=== PATIENT | female | born 1950 | race Caucasian/White ===

== ENCOUNTER 2016-05-15 17:14 | Emergency (ER) | payer OTHER, MEDICARE ==
[2016-05-15 19:43] LABS: BASOPHIL 0.4 % (0-2); EOSINOPHIL 2.5 % (0-7); HCT 36.7 % (37.0-47.0); HGB 12.2 g/dl (12.5-16.0); LYMPHOCYTE 26.5 % (15-48); MCH 30.6 pg (25.0-31.0); MCHC 33.2 g/dL (32.0-36.0); MPV 8.7 fL (6.0-9.5); NEUTROPHIL 61.6 % (41-80); PLT 421 K/uL (150-400); RBC 3.99 M/uL (4.20-5.40); RDW 14.1 % (11.5-14.0); WBC 7.3 K/uL (4.0-10.5)
[2016-05-15 19:57] LABS: CREATININE 1.4 mg/dL (0.5-1.0); POTASSIUM 3.7 mmol/L (3.5-5.1)
== END 2016-05-15 20:45 | disposition home or self-care (01) ==
LOC: FER 17:14
PROVIDERS: Nurse Practitioner Family
DX: I95.9 Hypotension, unspecified (principal); M54.2 Cervicalgia; M79.604 Pain in right leg; Z88.5 Allergy status to narcotic agent
CPT/HCPCS: 36415; 80048; 85025; 85379; 93005

== ENCOUNTER 2021-01-12 07:42 | Emergency (ER) | payer OTHER, MEDICARE ==
[~2021-01-12 07:42] MED LIST: ATARAX25 MG PO; CARTIA XT240 MG PO; CELEXA20 MG PO; CENTRUM COMPLE1 EACH PO; ELAVIL50 MG PO; PREVACID30 M1 PO; TOPROL XL 25MG25 MG PO; WARFARIN SODIU2.5 MG PO; WARFARIN SODIUM5 MG PO; WELLBUTRIN XL150 MG PO; ZOLPIDEM TART12.5 MG PO
[2021-01-12] MEDS ORDERED: NORCO 5-325 TA1 EACH PO (10:26)
== END 2021-01-12 11:17 | disposition home or self-care (01) ==
LOC: FER 07:42
DX: S52.572A Other intraarticular fracture of lower end of left radius, initial encounter for closed fracture (principal); Z88.5 Allergy status to narcotic agent; Z91.048 Other nonmedicinal substance allergy status; W19.XXXA Unspecified fall, initial encounter; Y92.009 Unspecified place in unspecified non-institutional (private) residence as the place of occurrence of the external cause
CPT/HCPCS: 73110